=== PATIENT | male | born 1995 | race Caucasian/White ===

== ENCOUNTER 2021-01-29 12:20 | Emergency (ER) | payer MEDICAID ==
[~2021-01-29] VITALS: Ht 182.9 cm; Wt 109.1 kg
[2021-01-29 12:49] VITALS: BP 127/90
[2021-01-29] MEDS ORDERED: ketorolac tromethamine 15mg/ml inj. IM ONE (13:35)
[2021-01-29] MEDS ORDERED: IBUP-1984 PO (13:56)
== END 2021-01-29 15:00 | disposition home or self-care (01) ==
LOC: ER 12:22
DX: M25.571 Pain in right ankle and joints of right foot (principal); W22.8XXA Striking against or struck by other objects, initial encounter; Y93.89 Activity, other specified; Y92.89 Other specified places as the place of occurrence of the external cause; Y99.8 Other external cause status
CPT/HCPCS: 73610; 96372; 99283; J1885

== ENCOUNTER 2021-08-28 14:11 | Emergency (ER) | payer MEDICAID ==
[~2021-08-28] VITALS: Ht 182.9 cm; Wt 150.0 kg
[2021-08-28 15:25] LABS: BASOPHILS # (AUTO) 0.1 X10'3 (0-0.2); BASOPHILS % (AUTO) 0.4 % (0-1); EOSINOPHILS % (AUTO) 0.3 % (0-6); HEMATOCRIT 41.6 % (42.0-52.0); HEMOGLOBIN 13.4 g/dl (14.0-17.9); LYMPHOCYTES # (AUTO) 1.7 X10'3 (1.1-4.8); MEAN CORPUSCULAR HEMOGLOBIN 25.3 PG (27.0-31.0); MEAN CORPUSCULAR HGB CONC 32.2 g/dL (33.0-36.5); MEAN CORPUSCULAR VOLUME 78.6 FL (78-98); MEAN PLATELET VOLUME 7.9 FL (7.4-10.4); MONOCYTES # (AUTO) 0.8 X10'3 (0-0.9); MONOCYTES % (AUTO) 5.5 % (2-12); NEUTROPHILS # (AUTO) 11.6 X10'3 (1.8-7.7); NEUTROPHILS % (AUTO) 81.8 % (42-75); PLATELET COUNT 332 X10'3 (140-440); RED BLOOD COUNT 5.29 X10'6 (4.70-6.10); WHITE BLOOD COUNT 14.2 X10'3 (4.5-11.0)
[2021-08-28 15:38] LABS: ALANINE AMINOTRANSFERASE 35 U/L (12-78); ALBUMIN 3.5 G/DL (3.4-5.0); ALBUMIN/GLOBULIN RATIO 0.9 (1.1-1.5); ALKALINE PHOSPHATASE 94 IU/L (46-116); ANION GAP 10 (8-16); ASPARTATE AMINO TRANSFERASE 20 U/L (10-37); BILIRUBIN,TOTAL 0.3 MG/DL (0.1-1.0); BLOOD UREA NITROGEN 7 MG/DL (7-18); BUN/CREATININE RATIO 8.6 (5.4-32.0); CALCIUM 9.2 MG/DL (8.5-10.1); CHLORIDE 107 MMOL/L (99-107); CREATININE 0.81 MG/DL (0.60-1.10); GLUCOSE 109 MG/DL (70-104); MAGNESIUM 1.9 MG/DL (1.5-2.4); POTASSIUM 3.8 MMOL/L (3.5-5.1); SODIUM 143 MMOL/L (135-145); TOTAL CARBON DIOXIDE 26.5 MMOL/L (24-32); TOTAL PROTEIN 7.5 G/DL (6.4-8.2); eGFR > 90 ML/MIN
[2021-08-28 16:01] LABS: CLARITY,URINE CLEAR (Clear); COLOR,URINE YELLOW (Yellow); GLUCOSE, URINE NEGATIVE (Neg); KETONES,URINE NEGATIVE (Neg); LEUKOCYTE ESTERASE ,URINE TRACE (Neg); NITRITES, URINE NEGATIVE (Neg); OCCULT BLOOD,URINE NEGATIVE (Neg); PROTEIN,URINE NEGATIVE (Neg); UROBILINOGEN,URINE 0.2 E.U/dL (0.2-1.0)
[2021-08-28 16:03] LABS: UA COLLECTION TYPE NON-SPECIFIED
[2021-08-28 16:11] LABS: SQUAMOUS EPITHELIAL CELL,UR FEW /LPF (FEW)
[2021-08-28 16:12] LABS: BACTERIA,URINE FEW /HPF (Neg); RBC,URINE 0-2 /HPF (0-2); WBC,URINE 0-4 /HPF (0-4)
[2021-08-28 17:49] VITALS: BP 131/80
== END 2021-08-28 17:50 | disposition home or self-care (01) ==
LOC: ER 14:11
DX: R55 Syncope and collapse (principal); R42 Dizziness and giddiness; R53.1 Weakness
CPT/HCPCS: 36415; 80053; 81001; 83735; 85025; 87088; 93005; 99284

== ENCOUNTER 2022-07-08 22:21 | Emergency (ER) | payer MEDICAID ==
[~2022-07-08] VITALS: Ht 182.9 cm; Wt 148.2 kg
[2022-07-08 22:26] VITALS: BP 134/82
[2022-07-08] MEDS ORDERED: rabies vaccine (PCEC)/PF 2.5 unit kit IMVAC ONE (22:30)
[2022-07-08] MEDS ORDERED: rabies immune globulin/PF 150 unit/ml inj IMVAC ONE ×2 (22:30→23:40)
[2022-07-08] MEDS ORDERED: TETanus/Pertussis (Acell)/Diphther VAC/PF (Tdap-Adult) 0.5ml syringe IMVAC ONE (22:30)
[2022-07-09] MEDS ORDERED: AMOX500C2 PO (00:16)
== END 2022-07-09 00:24 | disposition home or self-care (01) ==
LOC: ER 22:22
DX: S70.312A Abrasion, left thigh, initial encounter (principal); T63.91XA Toxic effect of contact with unspecified venomous animal, accidental (unintentional), initial encounter; Y92.89 Other specified places as the place of occurrence of the external cause; Y93.89 Activity, other specified; Y99.8 Other external cause status
CPT/HCPCS: 90376; 90471; 90675; 90715; 96372; 99284

== ENCOUNTER 2022-07-12 08:31 | Emergency (ER) | payer MEDICAID ==
[~2022-07-12] VITALS: Ht 182.9 cm; Wt 136.0 kg
[~2022-07-12 08:31] MED LIST: AMOX500C2 PO
[2022-07-12 08:33] VITALS: BP 142/95
[2022-07-12] MEDS ORDERED: rabies vaccine (PCEC)/PF 2.5 unit kit IMVAC ONE (11:05)
[2022-07-16] MEDS ORDERED: rabies vaccine (PCEC)/PF 2.5 unit kit IMVAC ONE (09:10)
== END 2022-07-12 11:30 | disposition home or self-care (01) ==
LOC: ER 08:31
DX: S81.851A Open bite, right lower leg, initial encounter (principal); Z23 Encounter for immunization; W64.XXXA Exposure to other animate mechanical forces, initial encounter; Y93.89 Activity, other specified; Y92.89 Other specified places as the place of occurrence of the external cause; Y99.8 Other external cause status
CPT/HCPCS: 90471; 90675; 99283

== ENCOUNTER 2022-07-16 08:37 | Emergency (ER) | payer MEDICAID ==
[~2022-07-16] VITALS: Ht 182.9 cm; Wt 136.0 kg
[2022-07-16 08:45] VITALS: BP 138/85
[2022-07-16] MEDS ORDERED: rabies vaccine (PCEC)/PF 2.5 unit kit IMVAC ONE (10:10)
== END 2022-07-16 10:21 | disposition home or self-care (01) ==
LOC: ER 08:37
DX: S81.851D Open bite, right lower leg, subsequent encounter (principal); Z48.00 Encounter for change or removal of nonsurgical wound dressing; Z20.3 Contact with and (suspected) exposure to rabies; W54.0XXD Bitten by dog, subsequent encounter
CPT/HCPCS: 90471; 90675; 99281

== ENCOUNTER 2022-07-23 06:53 | Emergency (ER) | payer MEDICAID ==
[~2022-07-23] VITALS: Ht 182.9 cm; Wt 131.8 kg
[2022-07-23 07:37] VITALS: BP 104/74
[2022-07-23] MEDS ORDERED: rabies vaccine (PCEC)/PF 2.5 unit kit IMVAC ONE (09:05)
== END 2022-07-23 09:20 | disposition home or self-care (01) ==
LOC: ER 06:53
DX: Z20.3 Contact with and (suspected) exposure to rabies (principal)
CPT/HCPCS: 90471; 90675; 99281

== ENCOUNTER 2023-03-22 08:41 | Inpatient (IN) | payer MEDICAID ==
[~2023-03-22] VITALS: Ht 182.9 cm; Wt 143.8 kg
[2023-03-22] MEDS ORDERED: iohexol 300mg/ml 100ml inj. ONE (10:10)
[2023-03-22 10:36] LABS: BASOPHILS # (AUTO) 0.1 X10'3 (0-0.2); BASOPHILS % (AUTO) 0.5 % (0-1); EOSINOPHILS # (AUTO) 0.1 X10'3 (0-0.9); EOSINOPHILS % (AUTO) 1.1 % (0-6); HEMATOCRIT 42.5 % (42.0-52.0); HEMOGLOBIN 13.8 g/dl (14.0-17.9); LYMPHOCYTES % (AUTO) 22.7 % (21-51); MEAN CORPUSCULAR HEMOGLOBIN 25.4 PG (27.0-31.0); MEAN CORPUSCULAR HGB CONC 32.5 g/dL (33.0-36.5); MEAN CORPUSCULAR VOLUME 78.1 FL (78-98); MEAN PLATELET VOLUME 8.2 FL (7.4-10.4); MONOCYTES # (AUTO) 0.8 X10'3 (0-0.9); MONOCYTES % (AUTO) 5.9 % (2-12); NEUTROPHILS # (AUTO) 9.1 X10'3 (1.8-7.7); NEUTROPHILS % (AUTO) 69.8 % (42-75); PLATELET COUNT 329 X10'3 (140-440); RED BLOOD COUNT 5.44 X10'6 (4.70-6.10); RED CELL DISTRIBUTION WIDTH 15.6 % (11.5-14.5)
[2023-03-22 10:50] LABS: ALANINE AMINOTRANSFERASE 38 U/L (12-78); ALBUMIN 3.7 G/DL (3.4-5.0); ALBUMIN/GLOBULIN RATIO 0.9 (1.1-1.5); ALKALINE PHOSPHATASE 101 IU/L (46-116); ANION GAP 5 (8-16); ASPARTATE AMINO TRANSFERASE 22 U/L (10-37); BILIRUBIN,TOTAL 0.6 MG/DL (0.1-1.0); BLOOD UREA NITROGEN 12 MG/DL (7-18); CALCIUM 9.3 MG/DL (8.5-10.1); CHLORIDE 101 MMOL/L (99-107); CREATININE 0.86 MG/DL (0.60-1.10); GLUCOSE 101 MG/DL (70-104); POTASSIUM 3.7 MMOL/L (3.5-5.1); SODIUM 134 MMOL/L (135-145); TOTAL CARBON DIOXIDE 28.3 MMOL/L (24-32); eCRCL 143 ML/MIN; eGFR > 90 ML/MIN
[2023-03-22 11:55] LABS: BILIRUBIN,URINE NEGATIVE (Neg); CLARITY,URINE CLEAR (Clear); COLOR,URINE YELLOW (Yellow); GLUCOSE, URINE NEGATIVE (Neg); KETONES,URINE NEGATIVE (Neg); LEUKOCYTE ESTERASE ,URINE NEGATIVE (Neg); NITRITES, URINE NEGATIVE (Neg); OCCULT BLOOD,URINE TRACE-INTACT (Neg); PH,URINE 5.5 (4.8-8.0); PROTEIN,URINE NEGATIVE (Neg); UROBILINOGEN,URINE 0.2 E.U/dL (0.2-1.0)
[2023-03-22 11:59] LABS: UA COLLECTION TYPE CLN CATCH MIDSTREAM
[2023-03-22 12:00] LABS: BACTERIA,URINE NONE SEEN /HPF (Neg); MUCUS STRANDS FEW /LPF (Neg); RBC,URINE 0-2 /HPF (0-2); SQUAMOUS EPITHELIAL CELL,UR NONE SEEN /LPF (FEW); WBC,URINE NONE SEEN /HPF (0-4)
[2023-03-22] MEDS ORDERED: normal saline 1000ML IV soln IVB ONE (13:15)
[2023-03-22] MEDS ORDERED: acetaminophen 325mg tablet PO PRN (13:50)
[2023-03-22] MEDS ORDERED: magnesium 4gm in 100ml NS 100 ML IV PRN (13:50)
[2023-03-22] MEDS: normal saline 1000ml 1,000 ML IV SCH (13:50)
[2023-03-22] MEDS ORDERED: ondansetron/PF 4mg/2ml inj IV PRN (13:50)
[2023-03-22] MEDS ORDERED: potassium Cl 20 mEq SR tablet PO PRN ×2 (13:50)
[2023-03-22] MEDS ORDERED: magnesium Cl slow-release 64mg tablet PO PRN (13:50)
[2023-03-22] MEDS ORDERED: potassium Cl 40MEQ/1/2NS 520ml 520 ML IV PRN (13:50)
[2023-03-22] MEDS ORDERED: ringers solution, lacted 1,000 ML IV ONE (14:00)
[2023-03-22] MEDS ORDERED: morphine 2 MG/ML inj. syringe IV PRN ×2 (16:00)
[2023-03-22] MEDS: piperacillin/tazo 4.5gm/100ml 100 ML IV SCH (16:06)
--- NOTE | 2023-03-22 18:37 | NUR ---
RECIEVED FROM ER IN A WHEELCHAIR W/ IVF ON, REPORT GIVEN BY LEONEL.
[2023-03-22 18:50] VITALS: BP 131/64; RESP 14; TEMP 99.4; O2SAT 100
[2023-03-22 22:00] VITALS: BP 136/85; PULSE 78; RESP 16; TEMP 98.8; O2SAT 100
[2023-03-23] VITALS (18 sets, daily range): BP systolic 100–150; BP diastolic 56–96; PULSE 67–102; RESP 14–18; TEMP 97.8–99; O2SAT 93–100
[2023-03-23 05:25] LABS: BASOPHILS # (AUTO) 0.1 X10'3 (0-0.2); BASOPHILS % (AUTO) 0.6 % (0-1); EOSINOPHILS # (AUTO) 0.2 X10'3 (0-0.9); EOSINOPHILS % (AUTO) 1.8 % (0-6); HEMATOCRIT 41.2 % (42.0-52.0); HEMOGLOBIN 13.5 g/dl (14.0-17.9); LYMPHOCYTES # (AUTO) 3.5 X10'3 (1.1-4.8); LYMPHOCYTES % (AUTO) 28.5 % (21-51); MEAN CORPUSCULAR HEMOGLOBIN 25.6 PG (27.0-31.0); MEAN CORPUSCULAR HGB CONC 32.7 g/dL (33.0-36.5); MEAN CORPUSCULAR VOLUME 78.1 FL (78-98); MEAN PLATELET VOLUME 8.7 FL (7.4-10.4); MONOCYTES # (AUTO) 0.7 X10'3 (0-0.9); MONOCYTES % (AUTO) 5.7 % (2-12); NEUTROPHILS # (AUTO) 7.8 X10'3 (1.8-7.7); NEUTROPHILS % (AUTO) 63.4 % (42-75); PLATELET COUNT 303 X10'3 (140-440); RED BLOOD COUNT 5.27 X10'6 (4.70-6.10); RED CELL DISTRIBUTION WIDTH 15.1 % (11.5-14.5); WHITE BLOOD COUNT 12.3 X10'3 (4.5-11.0)
[2023-03-23 05:33] LABS: ALANINE AMINOTRANSFERASE 37 U/L (12-78); ALBUMIN 3.4 G/DL (3.4-5.0); ALKALINE PHOSPHATASE 95 IU/L (46-116); ANION GAP 8 (8-16); ASPARTATE AMINO TRANSFERASE 17 U/L (10-37); BILIRUBIN,TOTAL 0.6 MG/DL (0.1-1.0); BLOOD UREA NITROGEN 9 MG/DL (7-18); CALCIUM 9.1 MG/DL (8.5-10.1); CHLORIDE 103 MMOL/L (99-107); CREATININE 0.82 MG/DL (0.60-1.10); POTASSIUM 3.4 MMOL/L (3.5-5.1); SODIUM 137 MMOL/L (135-145); TOTAL CARBON DIOXIDE 25.9 MMOL/L (24-32); eCRCL 150 ML/MIN; eGFR > 90 ML/MIN
[2023-03-23 05:34] LABS: ALBUMIN/GLOBULIN RATIO 0.8 (1.1-1.5); GLUCOSE 74 MG/DL (70-104); TOTAL PROTEIN 7.6 G/DL (6.4-8.2)
[2023-03-23] MEDS: piperacillin/tazo 4.5gm/100ml 100 ML IV SCH ×3 (07:31→16:11)
[2023-03-23 09:34] LABS: MAGNESIUM 2.2 MG/DL (1.5-2.4)
[2023-03-23] MEDS ORDERED: BUPIVAcaine/PF 2.5 mg/ml (0.25%) 30ml vial ONE (09:44)
[2023-03-23] MEDS ORDERED: midazolam 1 mg/ML 2ml injection ONE (09:45)
[2023-03-23] MEDS: normal saline 1000ml 1,000 ML IV SCH ×2 (09:50→15:40)
[2023-03-23] MEDS ORDERED: proCHLORperazine 10 MG/2 ml inj IV PRN (10:00)
[2023-03-23] MEDS ORDERED: ketorolac trometh. 30mg/ml inj. IV ONE (10:00)
[2023-03-23] MEDS ORDERED: meperidine/PF 25mg/ml syringe IV PRN ×3 (10:00)
[2023-03-23] MEDS ORDERED: morphine 2 MG/ML inj. syringe IV PRN (10:00)
[2023-03-23] MEDS ORDERED: hydrALAZINE 20mg/ml inj. IV PRN (10:00)
[2023-03-23] MEDS ORDERED: acetaminophen 1,000mg/100ml IV 100 ML IV PRN (10:00)
[2023-03-23] MEDS ORDERED: ringers solution, lacted 1,000 ML IV SCH (10:00)
[2023-03-23] MEDS ORDERED: labetalol 20mg/4ml (5mg/ml) syringe IV PRN (10:00)
[2023-03-23] MEDS ORDERED: morphine 4 MG/ML inj SYRINge IV PRN (10:00)
[2023-03-23] MEDS ORDERED: ondansetron/PF 4mg/2ml inj IV PRN ×2 (10:00→12:20)
[2023-03-23] MEDS ORDERED: rocuronium 10mg/ml inj IV ONE ×2 (10:44→11:02)
[2023-03-23] MEDS ORDERED: sevoflurane 250ml liquid IH ONE (10:44)
--- NOTE | 2023-03-23 10:49 | NUR ---
Called to recovery twice to give report. No answer.
[2023-03-23] MEDS ORDERED: fentaNYL /PF 50mcg/ml 5ml ampule ONE (10:51)
[2023-03-23] MEDS ORDERED: propofol inj 20 ML IV ONE ×2 (11:02)
[2023-03-23] MEDS ORDERED: ondansetron/PF 4mg/2ml inj ONE (11:02)
[2023-03-23] MEDS ORDERED: LIDOcaine 2% (20mg/ml) 5ml vial ONE (11:02)
[2023-03-23] MEDS ORDERED: dexamethasone sod phosphate 4mg/ml inj. ONE (11:03)
[2023-03-23 11:14] LABS: PROTHROMBIN TIME 10.7 SECONDS (9.0-12.0)
[2023-03-23] MEDS ORDERED: BUPIVAcaine/PF 2.5 mg/ml (0.25%) 30ml vial IJ ONE (11:47)
[2023-03-23] MEDS ORDERED: neostigmine methylsulfate 1 MG/ML 10ml vial ONE (12:12)
[2023-03-23] MEDS ORDERED: glycopyrrolate 0.2mg/ml inj ONE (12:12)
[2023-03-23] MEDS ORDERED: sugammadex 200mg/2ml injection IV ONE (12:18)
[2023-03-23] MEDS ORDERED: naloxone 0.4 mg/ml inj IV PRN (12:20)
--- NOTE | 2023-03-23 12:20 | NUR ---
Received from OR via BED, accompanied by Anesthesiologist PHYLLIS and report given by Anesthesiolgist. PT DROWSY, OXYGENATING WELL ON 10 LPM O2 VIA MASK, NO RESP DISTRESS NOTED. DENIES NAUSEA, C/O 2/10 INCISIONAL PAIN. 2 LARGE BANDAIDS OVER ABD TROCAR SITES. SCANT AMOUNT OF SANGINOUS OUTPUT ON UMBILICUS DSG. SCDS ON. VSS.
[2023-03-23] MEDS: HYDROcodone/acetaminophen 10/325mg tab PO PRN ×2 (13:25→19:15)
--- NOTE | 2023-03-23 13:35 | NUR ---
Report called to receiving nurse. Transferred via BED Belongings IN PT ROOM. VSS, TOLERATING PO FLUIDS WELL. PT IS DROWSY, PROTECTING AIRWAY. STATES HE IS PAINFUL 7/10, MEDICATED WITH IV TYLENOL, TORADOL AND GIVEN FIRST DOSE OF NORCO 10/325. PAIN LEVEL SLOWLY TRENDING DOWN. TRANSFERRED TO ORTHO FLOOR IN STABLE CONDITION. Special Issues communicated to receiving nurse.
--- NOTE | 2023-03-23 14:18 | NUR ---
PAGER ID: [phone] MESSAGE: Ayden Gomez Re: [id number] and [id number]. Both patients no cardiac history and have been in sinus rhythm. Do we need to continue them on telemetry monitoring? Thanks [id number]
--- NOTE | 2023-03-23 17:42 | NUR ---
Student documentation: I have reviewed all interventions, assessments performed and documented by Curtis LUNSFORD. Student Medication Administration: For this medication-pass time frame, all medication were reviewed, dispensed, administered and documented per hospital policy by Curtis LUNSFORD.
--- NOTE | 2023-03-23 18:29 | NUR ---
Problems reprioritized. Patient report given, questions answered & plan of care reviewed with Dylan LUNSFORD.
[2023-03-24] MEDS: piperacillin/tazo 4.5gm/100ml 100 ML IV SCH ×3 (00:06→15:21)
[2023-03-24 02:00] VITALS: BP 108/70; PULSE 86; RESP 16; TEMP 98.1; O2SAT 97
[2023-03-24] MEDS: normal saline 1000ml 1,000 ML IV SCH ×2 (03:57→19:58)
[2023-03-24 06:00] VITALS: BP 107/57; PULSE 58; RESP 20; TEMP 98.6; O2SAT 97
[2023-03-24 06:04] LABS: BASOPHILS # (AUTO) 0.1 X10'3 (0-0.2); BASOPHILS % (AUTO) 0.5 % (0-1); EOSINOPHILS % (AUTO) 0 % (0-6); HEMATOCRIT 41.1 % (42.0-52.0); HEMOGLOBIN 13.4 g/dl (14.0-17.9); LYMPHOCYTES # (AUTO) 1.4 X10'3 (1.1-4.8); LYMPHOCYTES % (AUTO) 7.9 % (21-51); MEAN CORPUSCULAR HEMOGLOBIN 25.3 PG (27.0-31.0); MEAN CORPUSCULAR HGB CONC 32.5 g/dL (33.0-36.5); MEAN CORPUSCULAR VOLUME 77.8 FL (78-98); MEAN PLATELET VOLUME 8.6 FL (7.4-10.4); MONOCYTES # (AUTO) 0.8 X10'3 (0-0.9); MONOCYTES % (AUTO) 4.4 % (2-12); NEUTROPHILS # (AUTO) 15.7 X10'3 (1.8-7.7); NEUTROPHILS % (AUTO) 87.2 % (42-75); PLATELET COUNT 334 X10'3 (140-440); RED BLOOD COUNT 5.28 X10'6 (4.70-6.10); RED CELL DISTRIBUTION WIDTH 14.8 % (11.5-14.5); WHITE BLOOD COUNT 18.1 X10'3 (4.5-11.0)
--- NOTE | 2023-03-24 06:15 | NUR ---
Patient in room ORTHO 4022. I have received report from Dylan BILL and had the opportunity to ask questions and assume patient care.
[2023-03-24 06:20] LABS: ALANINE AMINOTRANSFERASE 37 U/L (12-78); ALBUMIN 3.5 G/DL (3.4-5.0); ALBUMIN/GLOBULIN RATIO 0.8 (1.1-1.5); ALKALINE PHOSPHATASE 90 IU/L (46-116); ANION GAP 8 (8-16); ASPARTATE AMINO TRANSFERASE 18 U/L (10-37); BILIRUBIN,TOTAL 0.5 MG/DL (0.1-1.0); BLOOD UREA NITROGEN 6 MG/DL (7-18); CALCIUM 9.4 MG/DL (8.5-10.1); CHLORIDE 102 MMOL/L (99-107); CREATININE 0.86 MG/DL (0.60-1.10); GLUCOSE 115 MG/DL (70-104); POTASSIUM 3.8 MMOL/L (3.5-5.1); SODIUM 136 MMOL/L (135-145); TOTAL CARBON DIOXIDE 26.3 MMOL/L (24-32); TOTAL PROTEIN 7.9 G/DL (6.4-8.2); eCRCL 143 ML/MIN; eGFR > 90 ML/MIN
[2023-03-24 08:00] VITALS: RESP 20; O2SAT 97
[2023-03-24] MEDS ORDERED: magnesium hydroxide 30ml (MOM) UD suspension PO PRN (13:15)
[2023-03-24] MEDS ORDERED: UNABLE TO OBTAIN (16:01)
[2023-03-24] MEDS ORDERED: metoclopramide 5 mg/ml inj IV PRN (17:30)
[2023-03-24 18:00] VITALS: BP 131/72; PULSE 82; RESP 18; TEMP 97.8; O2SAT 97
--- NOTE | 2023-03-24 18:00 | NUR ---
I have reviewed and agree with interventions, assessments, and documentation by Angelique Khalil LVN.
--- NOTE | 2023-03-24 18:31 | NUR ---
Problems reprioritized. Patient report given, questions answered & plan of care reviewed with Beth LUNSFORD.
[2023-03-24 22:00] VITALS: BP 112/57; PULSE 72; RESP 16; TEMP 97.9; O2SAT 100
[2023-03-25] MEDS: piperacillin/tazo 4.5gm/100ml 100 ML IV SCH ×2 (00:47→08:15)
[2023-03-25 06:00] VITALS: BP 111/41; PULSE 74; RESP 18; TEMP 97.6; O2SAT 99
--- NOTE | 2023-03-25 06:05 | NUR ---
Patient in room ORTHO 4022. I have received report from Beth RN and had the opportunity to ask questions and assume patient care.
[2023-03-25 06:49] LABS: BASOPHILS # (AUTO) 0.1 X10'3 (0-0.2); BASOPHILS % (AUTO) 0.4 % (0-1); EOSINOPHILS # (AUTO) 0.1 X10'3 (0-0.9); EOSINOPHILS % (AUTO) 0.5 % (0-6); HEMATOCRIT 39.9 % (42.0-52.0); HEMOGLOBIN 12.8 g/dl (14.0-17.9); LYMPHOCYTES # (AUTO) 4.2 X10'3 (1.1-4.8); LYMPHOCYTES % (AUTO) 26.5 % (21-51); MEAN CORPUSCULAR HEMOGLOBIN 25.3 PG (27.0-31.0); MEAN CORPUSCULAR HGB CONC 32.1 g/dL (33.0-36.5); MEAN CORPUSCULAR VOLUME 78.8 FL (78-98); MEAN PLATELET VOLUME 8.4 FL (7.4-10.4); MONOCYTES # (AUTO) 1.2 X10'3 (0-0.9); MONOCYTES % (AUTO) 7.8 % (2-12); NEUTROPHILS # (AUTO) 10.3 X10'3 (1.8-7.7); NEUTROPHILS % (AUTO) 64.8 % (42-75); PLATELET COUNT 326 X10'3 (140-440); RED BLOOD COUNT 5.07 X10'6 (4.70-6.10); RED CELL DISTRIBUTION WIDTH 15.1 % (11.5-14.5); WHITE BLOOD COUNT 15.9 X10'3 (4.5-11.0)
[2023-03-25 07:15] LABS: ALANINE AMINOTRANSFERASE 33 U/L (12-78); ALBUMIN 3.3 G/DL (3.4-5.0); ALBUMIN/GLOBULIN RATIO 0.8 (1.1-1.5); ALKALINE PHOSPHATASE 80 IU/L (46-116); ANION GAP 10 (8-16); ASPARTATE AMINO TRANSFERASE 22 U/L (10-37); BILIRUBIN,TOTAL 0.4 MG/DL (0.1-1.0); BLOOD UREA NITROGEN 12 MG/DL (7-18); BUN/CREATININE RATIO 12.2 (10.0-20.0); CALCIUM 9.1 MG/DL (8.5-10.1); CHLORIDE 104 MMOL/L (99-107); CREATININE 0.98 MG/DL (0.60-1.10); GLUCOSE 88 MG/DL (70-104); POTASSIUM 3.6 MMOL/L (3.5-5.1); SODIUM 140 MMOL/L (135-145); TOTAL CARBON DIOXIDE 25.9 MMOL/L (24-32); TOTAL PROTEIN 7.4 G/DL (6.4-8.2); eCRCL 125 ML/MIN; eGFR > 90 ML/MIN
[2023-03-25 08:00] VITALS: RESP 18; O2SAT 99
[2023-03-25] MEDS ORDERED: ACET-1008 PO (08:14)
[2023-03-25] MEDS ORDERED: DOCU100C40 PO (08:15)
[2023-03-25 10:00] VITALS: BP 131/78; PULSE 102; RESP 16; TEMP 97.7; O2SAT 98
--- NOTE | 2023-03-25 12:00 | NUR ---
I have reviewed and agree with interventions, assessments, and documentation by Angelique Khalil LVN.
--- NOTE | 2023-03-25 13:15 | NUR ---
Patient discharge home today with discharge instructions. All questions were answered. IV removed and all belongings were gathered. Patient alert and appropriate upon discharge. CAT transportation picked patient up and transported to home.
== END 2023-03-25 12:49 | disposition home or self-care (01) | DRG 234 ==
LOC: ER 08:41 → UNDOADMIN 13:57 → ED HOLD 13:57 → ORTHO 4S 18:33
PROVIDERS: ADMIT Internal Medicine; ATTEND Internal Medicine
PROC: 0DTJ4ZZ Resection of Appendix, Percutaneous Endoscopic Approach (ICD-10-PCS; principal; 2023-03-23 10:44)
DX: K35.30 Acute appendicitis with localized peritonitis, without perforation or gangrene (principal); Z79.899 Other long term (current) drug therapy
CPT/HCPCS: 36415; 71045; 74176; 80053; 81001; 82948; 83735; 85025; 85610; 86885; 86900; 86901; 87081; 99285; A4215; A4314; A4618; A7000; G0378; J0131; J1100; J1885; J2250; J2270; J2405; J2543; J2704; J2710; J2765; J3010; J3490; J7030; J7120; Q9967

== ENCOUNTER 2023-04-05 16:12 | Emergency (ER) | payer MEDICAID ==
[~2023-04-05] VITALS: Ht 182.9 cm; Wt 152.6 kg
[~2023-04-05 16:12] MED LIST changes: +ACET-1008 PO; -AMOX500C2 PO; +DOCU100C40 PO; +UNABLE TO OBTAIN
[2023-04-05 16:13] VITALS: BP 121/78; PULSE 98; RESP 16; TEMP 97.9; O2SAT 98
[2023-04-05 17:28] LABS: BASOPHILS # (AUTO) 0.2 X10'3 (0-0.2); BASOPHILS % (AUTO) 1.1 % (0-1); EOSINOPHILS # (AUTO) 0.1 X10'3 (0-0.9); EOSINOPHILS % (AUTO) 0.9 % (0-6); HEMATOCRIT 43.3 % (42.0-52.0); HEMOGLOBIN 14.1 g/dl (14.0-17.9); LYMPHOCYTES # (AUTO) 2.9 X10'3 (1.1-4.8); LYMPHOCYTES % (AUTO) 19.9 % (21-51); MEAN CORPUSCULAR HEMOGLOBIN 25.2 PG (27.0-31.0); MEAN CORPUSCULAR HGB CONC 32.5 g/dL (33.0-36.5); MEAN CORPUSCULAR VOLUME 77.7 FL (78-98); MEAN PLATELET VOLUME 8.4 FL (7.4-10.4); MONOCYTES # (AUTO) 0.6 X10'3 (0-0.9); MONOCYTES % (AUTO) 4.4 % (2-12); NEUTROPHILS # (AUTO) 10.7 X10'3 (1.8-7.7); NEUTROPHILS % (AUTO) 73.7 % (42-75); PLATELET COUNT 365 X10'3 (140-440); RED BLOOD COUNT 5.58 X10'6 (4.70-6.10); RED CELL DISTRIBUTION WIDTH 14.9 % (11.5-14.5); WHITE BLOOD COUNT 14.5 X10'3 (4.5-11.0)
[2023-04-05 17:30] LABS: ALANINE AMINOTRANSFERASE 71 U/L (12-78); ALBUMIN 3.8 G/DL (3.4-5.0); ALBUMIN/GLOBULIN RATIO 0.9 (1.1-1.5); ALKALINE PHOSPHATASE 109 IU/L (46-116); ANION GAP 11 (8-16); ASPARTATE AMINO TRANSFERASE 32 U/L (10-37); BILIRUBIN,TOTAL 0.5 MG/DL (0.1-1.0); BLOOD UREA NITROGEN 7 MG/DL (7-18); CALCIUM 9.7 MG/DL (8.5-10.1); CHLORIDE 102 MMOL/L (99-107); CREATININE 0.88 MG/DL (0.60-1.10); GLUCOSE 126 MG/DL (70-104); POTASSIUM 3.3 MMOL/L (3.5-5.1); SODIUM 138 MMOL/L (135-145); TOTAL PROTEIN 8.2 G/DL (6.4-8.2); eCRCL 140 ML/MIN; eGFR > 90 ML/MIN
[2023-04-05] MEDS ORDERED: potassium Cl 20 mEq SR tablet PO STA (17:45)
[2023-04-05 18:01] LABS: OCCULT BLOOD STOOL NEGATIVE (Neg)
[2023-04-05 19:34] LABS: BILIRUBIN,URINE NEGATIVE (Neg); CLARITY,URINE CLEAR (Clear); COLOR,URINE YELLOW (Yellow); GLUCOSE, URINE NEGATIVE (Neg); KETONES,URINE NEGATIVE (Neg); LEUKOCYTE ESTERASE ,URINE NEGATIVE (Neg); NITRITES, URINE NEGATIVE (Neg); OCCULT BLOOD,URINE NEGATIVE (Neg); PROTEIN,URINE NEGATIVE (Neg); UROBILINOGEN,URINE 0.2 E.U/dL (0.2-1.0)
[2023-04-05 19:39] LABS: UA COLLECTION TYPE CLN CATCH MIDSTREAM
== END 2023-04-05 21:00 | disposition home or self-care (01) ==
LOC: ER 16:12
DX: R10.31 Right lower quadrant pain (principal)
CPT/HCPCS: 36415; 80053; 81003; 82272; 85025; 99283

== ENCOUNTER 2023-04-09 15:15 | Emergency (ER) | payer MEDICAID ==
[~2023-04-09] VITALS: Ht 182.9 cm; Wt 153.2 kg
[2023-04-09 16:07] VITALS: BP 174/91; PULSE 82; RESP 16; TEMP 98.3; O2SAT 98
[2023-04-09] MEDS ORDERED: iohexol 300mg/ml 100ml inj. ONE (17:54)
[2023-04-09 18:14] LABS: ALANINE AMINOTRANSFERASE 53 U/L (12-78); ALBUMIN 3.6 G/DL (3.4-5.0); ALBUMIN/GLOBULIN RATIO 0.8 (1.1-1.5); ALKALINE PHOSPHATASE 115 IU/L (46-116); ANION GAP 7 (8-16); ASPARTATE AMINO TRANSFERASE 22 U/L (10-37); BILIRUBIN,TOTAL 0.3 MG/DL (0.1-1.0); BLOOD UREA NITROGEN 9 MG/DL (7-18); BUN/CREATININE RATIO 10.3 (10.0-20.0); CALCIUM 9.4 MG/DL (8.5-10.1); CHLORIDE 105 MMOL/L (99-107); CREATININE 0.87 MG/DL (0.60-1.10); GLUCOSE 92 MG/DL (70-104); POTASSIUM 3.7 MMOL/L (3.5-5.1); SODIUM 140 MMOL/L (135-145); TOTAL CARBON DIOXIDE 28.4 MMOL/L (24-32); eCRCL 141 ML/MIN; eGFR > 90 ML/MIN
== END 2023-04-10 01:28 | disposition left against medical advice (07) ==
LOC: ER 15:16
DX: Z00.8 Encounter for other general examination (principal); Z53.21 Procedure and treatment not carried out due to patient leaving prior to being seen by health care provider
CPT/HCPCS: 36415; 80053; 83605; 87040; 99281; J3490; Q9967

== ENCOUNTER 2023-04-30 07:33 | Emergency (ER) | payer MEDICAID ==
[~2023-04-30] VITALS: Ht 182.9 cm; Wt 156.3 kg
[2023-04-30 07:35] VITALS: TEMP 97.6
[2023-04-30 08:47] LABS: BASOPHILS # (AUTO) 0.1 X10'3 (0-0.2); BASOPHILS % (AUTO) 0.4 % (0-1); EOSINOPHILS # (AUTO) 0.2 X10'3 (0-0.9); EOSINOPHILS % (AUTO) 1.7 % (0-6); HEMATOCRIT 40.6 % (42.0-52.0); LYMPHOCYTES # (AUTO) 2.8 X10'3 (1.1-4.8); LYMPHOCYTES % (AUTO) 20.9 % (21-51); MEAN CORPUSCULAR HEMOGLOBIN 25.4 PG (27.0-31.0); MEAN CORPUSCULAR HGB CONC 32.1 g/dL (33.0-36.5); MEAN PLATELET VOLUME 8.1 FL (7.4-10.4); MONOCYTES # (AUTO) 0.7 X10'3 (0-0.9); MONOCYTES % (AUTO) 5.1 % (2-12); NEUTROPHILS # (AUTO) 9.5 X10'3 (1.8-7.7); NEUTROPHILS % (AUTO) 71.9 % (42-75); PLATELET COUNT 321 X10'3 (140-440); RED BLOOD COUNT 5.14 X10'6 (4.70-6.10); WHITE BLOOD COUNT 13.3 X10'3 (4.5-11.0)
[2023-04-30 09:17] LABS: ALANINE AMINOTRANSFERASE 35 U/L (12-78); ALBUMIN 3.3 G/DL (3.4-5.0); ALBUMIN/GLOBULIN RATIO 0.8 (1.1-1.5); ALKALINE PHOSPHATASE 109 IU/L (46-116); ANION GAP 4 (8-16); ASPARTATE AMINO TRANSFERASE 15 U/L (10-37); BILIRUBIN,TOTAL 0.3 MG/DL (0.1-1.0); BLOOD UREA NITROGEN 10 MG/DL (7-18); BUN/CREATININE RATIO 11.9 (10.0-20.0); CALCIUM 8.9 MG/DL (8.5-10.1); CHLORIDE 105 MMOL/L (99-107); CREATININE 0.84 MG/DL (0.60-1.10); GLUCOSE 118 MG/DL (70-104); LIPASE 23 U/L (16-77); POTASSIUM 4.2 MMOL/L (3.5-5.1); SODIUM 137 MMOL/L (135-145); TOTAL CARBON DIOXIDE 28.5 MMOL/L (24-32); TOTAL PROTEIN 7.2 G/DL (6.4-8.2); eCRCL 146 ML/MIN; eGFR > 90 ML/MIN
[2023-04-30] MEDS ORDERED: iohexol 300mg/ml 100ml inj. ONE (09:24)
[2023-04-30 13:16] VITALS: BP 131/89; PULSE 97; RESP 17; O2SAT 97
== END 2023-04-30 13:18 | disposition home or self-care (01) ==
LOC: ER 07:33
DX: K64.8 Other hemorrhoids (principal); Z90.49 Acquired absence of other specified parts of digestive tract
CPT/HCPCS: 36415; 74177; 80053; 83690; 85025; 99285; J3490; Q9967

== ENCOUNTER 2023-12-31 07:24 | Emergency (ER) | payer MEDICAID ==
[~2023-12-31] VITALS: Ht 182.9 cm; Wt 162.1 kg
[2023-12-31 07:42] VITALS: BP 144/91; PULSE 97; RESP 16; TEMP 97; O2SAT 96
[2023-12-31 08:34] LABS: BASOPHILS # (AUTO) 0.1 X10'3 (0-0.2); BASOPHILS % (AUTO) 0.5 % (0-1); EOSINOPHILS # (AUTO) 0.2 X10'3 (0-0.9); HEMATOCRIT 41.1 % (42.0-52.0); HEMOGLOBIN 13.3 g/dl (14.0-17.9); MEAN CORPUSCULAR HGB CONC 32.2 g/dL (33.0-36.5); MEAN CORPUSCULAR VOLUME 77.7 FL (78-98); MEAN PLATELET VOLUME 8.7 FL (7.4-10.4); MONOCYTES # (AUTO) 0.9 X10'3 (0-0.9); MONOCYTES % (AUTO) 5.8 % (2-12); NEUTROPHILS # (AUTO) 11.1 X10'3 (1.8-7.7); NEUTROPHILS % (AUTO) 72.7 % (42-75); PLATELET COUNT 351 X10'3 (140-440); RED CELL DISTRIBUTION WIDTH 15.2 % (11.5-14.5); WHITE BLOOD COUNT 15.3 X10'3 (4.5-11.0)
[2023-12-31 08:37] LABS: APTT 27 SECONDS (22-32); PROTHROMBIN TIME 10.3 SECONDS (9.0-12.0)
[2023-12-31 08:39] LABS: ALANINE AMINOTRANSFERASE 38 U/L (12-78); ALBUMIN 3.4 G/DL (3.4-5.0); ALBUMIN/GLOBULIN RATIO 0.8 (1.1-1.5); ALKALINE PHOSPHATASE 125 IU/L (46-116); ANION GAP 9 (8-16); ASPARTATE AMINO TRANSFERASE 20 U/L (10-37); BILIRUBIN,TOTAL 0.4 MG/DL (0.1-1.0); BLOOD UREA NITROGEN 10 MG/DL (7-18); BUN/CREATININE RATIO 13.2 (10.0-20.0); CALCIUM 8.6 MG/DL (8.5-10.1); CHLORIDE 104 MMOL/L (99-107); CREATININE 0.76 MG/DL (0.60-1.10); POTASSIUM 3.5 MMOL/L (3.5-5.1); SODIUM 138 MMOL/L (135-145); TOTAL CARBON DIOXIDE 24.8 MMOL/L (24-32); TOTAL PROTEIN 7.7 G/DL (6.4-8.2); eCRCL 160 ML/MIN; eGFR > 90 ML/MIN
[2023-12-31 08:46] LABS: GLUCOSE 117 MG/DL (70-104)
[2023-12-31] MEDS ORDERED: HYDR25SU7 RC (09:22)
[2023-12-31] MEDS ORDERED: DOCU-148 PO (09:22)
[2023-12-31] MEDS ORDERED: insulin regular, human 10 units/0.1 ml syringe SQ ONE (10:00)
[2023-12-31] MEDS ORDERED: insulin regular, human 10 units/0.1 ml syringe IV ONE (10:00)
== END 2023-12-31 10:38 | disposition home or self-care (01) ==
LOC: ER 07:24
DX: K64.8 Other hemorrhoids (principal); R19.7 Diarrhea, unspecified; K59.00 Constipation, unspecified; Z79.1 Long term (current) use of non-steroidal anti-inflammatories (NSAID); Z90.49 Acquired absence of other specified parts of digestive tract; Z60.2 Problems related to living alone
CPT/HCPCS: 36415; 80053; 85025; 85610; 85730; 86885; 86900; 86901; 99283

== ENCOUNTER 2024-08-16 05:38 | Emergency (ER) | payer MEDICARE, MEDICAID ==
[~2024-08-16] VITALS: Ht 182.9 cm; Wt 134.1 kg
[~2024-08-16 05:38] MED LIST changes: +DOCU-148 PO; +HYDR25SU7 RC
[2024-08-16 06:29] LABS: ALANINE AMINOTRANSFERASE 38 U/L (12-78); ALBUMIN 3.6 G/DL (3.4-5.0); ALBUMIN/GLOBULIN RATIO 0.9 (1.1-1.5); ALKALINE PHOSPHATASE 97 IU/L (46-116); ANION GAP 9 (8-16); ASPARTATE AMINO TRANSFERASE 21 U/L (10-37); BILIRUBIN,TOTAL 0.2 MG/DL (0.1-1.0); BLOOD UREA NITROGEN 8 MG/DL (7-18); CALCIUM 8.9 MG/DL (8.5-10.1); CHLORIDE 106 MMOL/L (99-107); CREATININE 0.73 MG/DL (0.60-1.10); GLUCOSE 112 MG/DL (70-104); LIPASE 28 U/L (16-77); POTASSIUM 3.5 MMOL/L (3.5-5.1); SODIUM 140 MMOL/L (135-145); TOTAL CARBON DIOXIDE 25.5 MMOL/L (24-32); TOTAL PROTEIN 7.5 G/DL (6.4-8.2); eCRCL 167 ML/MIN; eGFR > 90 ML/MIN
[2024-08-16 06:39] LABS: BASOPHILS % (AUTO) 0.2 % (0-1); EOSINOPHILS # (AUTO) 0.1 X10'3 (0-0.9); EOSINOPHILS % (AUTO) 0.4 % (0-6); HEMATOCRIT 41.9 % (42.0-52.0); HEMOGLOBIN 13.3 g/dl (14.0-17.9); LYMPHOCYTES # (AUTO) 2.7 X10'3 (1.1-4.8); LYMPHOCYTES % (AUTO) 16.9 % (21-51); MEAN CORPUSCULAR HEMOGLOBIN 24.5 PG (27.0-31.0); MEAN CORPUSCULAR HGB CONC 31.7 g/dL (33.0-36.5); MEAN CORPUSCULAR VOLUME 77.4 FL (78-98); MEAN PLATELET VOLUME 8.8 FL (7.4-10.4); MONOCYTES # (AUTO) 0.7 X10'3 (0-0.9); MONOCYTES % (AUTO) 4.6 % (2-12); NEUTROPHILS # (AUTO) 12.5 X10'3 (1.8-7.7); NEUTROPHILS % (AUTO) 77.9 % (42-75); PLATELET COUNT 321 X10'3 (140-440); RED BLOOD COUNT 5.41 X10'6 (4.70-6.10); RED CELL DISTRIBUTION WIDTH 15.7 % (11.5-14.5); WHITE BLOOD COUNT 16.1 X10'3 (4.5-11.0)
[2024-08-16] MEDS: ketorolac trometh 30MG/ML vial 30 MG/ML VIAL IM ONE (07:09)
[2024-08-16] MEDS: famotidine 20mg tablet PO ONE (07:10)
[2024-08-16] MEDS: OLANZapine **IM** 10 mg inj. IM ONE (07:10)
[2024-08-16 07:28] LABS: BILIRUBIN,URINE NEGATIVE (Neg); CLARITY,URINE CLEAR (Clear); COLOR,URINE YELLOW (Yellow); GLUCOSE, URINE NEGATIVE (Neg); KETONES,URINE NEGATIVE (Neg); LEUKOCYTE ESTERASE ,URINE NEGATIVE (Neg); NITRITES, URINE NEGATIVE (Neg); OCCULT BLOOD,URINE NEGATIVE (Neg); PH,URINE 6.5 (4.8-8.0); PROTEIN,URINE NEGATIVE (Neg); UROBILINOGEN,URINE 0.2 E.U/dL (0.2-1.0)
[2024-08-16 07:33] LABS: UA COLLECTION TYPE CLN CATCH MIDSTREAM
[2024-08-16 07:56] VITALS: BP 114/91; PULSE 71; RESP 17; TEMP 98; O2SAT 99
== END 2024-08-16 07:58 | disposition home or self-care (01) ==
LOC: ER 05:38
DX: R10.816 Epigastric abdominal tenderness (principal); Z90.49 Acquired absence of other specified parts of digestive tract
CPT/HCPCS: 36415; 80053; 81003; 83690; 85025; 96372; 99284; J1885; J3490

== ENCOUNTER 2024-11-10 12:46 | Emergency (ER) | payer MEDICARE, MEDICAID ==
[~2024-11-10] VITALS: Ht 182.9 cm; Wt 101.3 kg
[2024-11-10 12:50] VITALS: BP 138/98; PULSE 106; RESP 17; TEMP 97.9; O2SAT 100
--- NOTE | 2024-11-10 14:27 | Physician Documentation ---
History of Present Illness General Chief Complaint: Bite-insect Stated Complaint: BUG BITE Time Seen by MD: 12:53 Primary Medical Doctor: none History of Present Illness Initial Comments [age] year male who presents to the emergency department status post bat bite to the left forearm yesterday. Continues to have mild pain to the area. A single puncture wound to the left mid forearm without erythema. Medication Reconciliation Allergies: Coded Allergies: No Known Allergies (Unverified , 11/10/24) Scheduled Docusate Sodium (Docusate Sodium), 2 CAP PO HS Docusate Sodium (Colace), 1 CAP PO Q12H Hydrocortisone Acetate (Hydrocortisone Acetate), 1 SUPP RC Q12H Scheduled PRN Acetaminophen (Tylenol), 650 MG PO Q6H PRN for pain Miscellaneous Medications Unable to Obtain Medications (Unable to Obtain Medications), (Reported) Past Medical History Past Medical History: *GI/HEPATOBILIARY*, Hemorrhoids Past Surgical History: appendectomy Smoking: Non-Smoker Alcohol Use: None Drug Use: none Lives with: Alone Lives In: Home Occupation: employed Review of Systems All Other Systems at this time: Reviewed and Negative Constitutional: Denies: fever, chills Musc: Reports: pain Physical Exam Physical Exam Vital Signs: RN Vital Signs have been reviewed: Yes, Temperature: 97.9, Source: Temporal, Heart Rate: 106, Respiratory Rate: 17, BP: 138/98, Pulse Oximetry: 100, Weight: 101.300 General Appearance: alert, WD/WN, mild distress Head: normal inspection Face: normal inspection Pupils/EOM/Fundus: PERRLA Respiratory: no respiratory distress Cardiovascular: regular rate, rhythm Back: normal inspection Extremities: normal range of motion Neurologic: oriented x4 Motor / Sensory: no motor deficit, no sensory deficit Psychiatric: normal mood/affect Skin: warm/dry, other (single puncture wound LFA); No: rash, erythema Progress Results/Orders Results/Orders Completed Orders - ARUN CAVANAUGH Rabies Immune Globulin/Pf Inj (Hyperrab (11/10/24 14:27) Rabies Vaccine (Pcec)/Pf (Rabavert Rabie (11/10/24 14:30) Vital Signs 11/10/24 12:50 Temp 97.9 Pulse 106 Resp 17 B/P (MAP) 138/98 Pulse Ox 100 Medical Decision Making Differential Diagnosis 28-year-old male who is status post bat bite to left forearm. Shared decision- making to begin rabies vaccines and administer rabies immunoglobulin today. No secondary signs of infection at this time. Grossly neurologically intact. Discharged safely from the emergency department with instructions to return on day three, seven and 10. Departure Disposition: 01 HOME / SELF CARE / HOMELESS Impression: Primary Impression: Bat bite wound Condition: Stable Discharge Instructions: Rabies Immune Globulin, human RIG solution for injection, Rabies Vaccine suspension for injection, VIS, Rabies - CDC (11/08/2021) Additional Instructions: Please follow up in 3 days for repeated Rabies vaccine, then 7 days from today and then 14 days from today. Referrals: NO PRIMARY CARE PROVIDER (PCP) Education Educated: Patient Educated regarding: diagnosis, treatment Signature Scribe Signature: . Attestation: . ARUN CAVANAUGH PAC Nov 10, 2024 14:27
[2024-11-10] MEDS: rabies vaccine (PCEC)/PF 2.5 unit kit IMVAC ONE (15:28)
[2024-11-10] MEDS: rabies immune globulin/PF 150 unit/ml inj IMVAC STA (15:29)
== END 2024-11-10 16:10 | disposition home or self-care (01) ==
LOC: ER 12:46
DX: S51.832A Puncture wound without foreign body of left forearm, initial encounter (principal); Z90.49 Acquired absence of other specified parts of digestive tract; W55.81XA Bitten by other mammals, initial encounter; Y93.89 Activity, other specified; Y92.89 Other specified places as the place of occurrence of the external cause; Y99.8 Other external cause status
CPT/HCPCS: 90375; 90675; 96372; 99284; G0008; 90376; 90471

== ENCOUNTER 2024-11-13 07:11 | Emergency (ER) | payer MEDICARE, MEDICAID ==
[~2024-11-13] VITALS: Ht 182.9 cm; Wt 137.0 kg
[2024-11-13 07:13] VITALS: TEMP 98.2
--- NOTE | 2024-11-13 08:28 | Physician Documentation ---
History of Present Illness ~ General Chief Complaint: See Chief Complaint Stated Complaint: RABIES VACCINE Time Seen by MD: 08:27 OK to notify your PCP?: Yes Primary Medical Doctor: none Source: patient, RN/MD, RN notes reviewed, old records Mode of Arrival: POV Exam Limitations: no limitations History of Present Illness Initial Comments Patient comes in for his rabies shot. He was bitten by a bat to his left forearm. There was no signs of infection. His tetanus is up-to-date. Patient is doing well otherwise no fevers chills just here for his series of shots. Patient has no complaints Medication Reconciliation Allergies: Coded Allergies: No Known Allergies (Unverified , 11/13/24) Scheduled Docusate Sodium (Docusate Sodium), 2 CAP PO HS Docusate Sodium (Colace), 1 CAP PO Q12H Hydrocortisone Acetate (Hydrocortisone Acetate), 1 SUPP RC Q12H Scheduled PRN Acetaminophen (Tylenol), 650 MG PO Q6H PRN for pain Miscellaneous Medications Unable to Obtain Medications (Unable to Obtain Medications), (Reported) Past Medical History Past Medical History: *GI/HEPATOBILIARY*, Hemorrhoids Past Surgical History: appendectomy Patient History: FH: BRCA gene positive Alcohol Use: None Drug Use: none Lives with: Alone Lives In: Home Occupation: employed Review of Systems All Other Systems at this time: Reviewed and Negative Physical Exam Physical Exam Vital Signs: RN Vital Signs have been reviewed: Yes, Temperature: 98.2, Source: Temporal, Heart Rate: 98, Respiratory Rate: 16, BP: 133/94, Pulse Oximetry: 98, Weight: 137.000 Oxygen Flow Rate: 0 Physical Exam General: The patient is well developed, well nourished, nontoxic appearing and is in no acute distress. Skin: [place], warm and dry with no rashes. HEENT: Head was normocephalic and atraumatic. Eyes - pupils equal, round, reactive to light and accommodation. Extraocular movements were intact. Conjunctivae were nonicteric. The mouth and oropharynx were clear with moist mucous membranes. Neck: Supple and nontender. There was no jugular venous distention, Chest: Clear to auscultation bilaterally without wheezes, rales or rhonchi. Heart: Rate regular and rhythmic. S1, S2. No murmurs. Abdomen: Soft, nontender and nondistended. Positive bowel sounds. No guarding or rebound. Extremities: No cyanosis, clubbing or edema. The patient moves all extremities. Pulses were equal and symmetric. Left forearm medial aspect is a antonio to the forearm no signs of erythema. Neurologic: Motor sensory grossly intact Psychologic: The patient was oriented to person, place and time. The patient demonstrated appropriate judgement and insight. Progress Results/Orders Reviewed/noted all lab results: Yes Results/Orders Completed Orders - JERRY GUZMAN MD Rabies Vaccine (Pcec)/Pf (Rabavert Rabie (11/13/24 08:30) Vital Signs 11/13/24 07:13 Temp 98.2 Pulse 98 Resp 16 B/P (MAP) 133/94 Pulse Ox 98 O2 Flow Rate 0 Re-Evaluation Re-Evaluation : Re-Evaluation: Improved Progress Patient was seen and examined. Patient is given reassurance. The patient received a vaccine. Patient is doing well. Patient was then discharged home. Medical Decision Making Additional info obtained from: old records Departure Disposition: 01 HOME / SELF CARE / HOMELESS Impression: Primary Impression: Encounter for repeat administration of rabies vaccination Additional Impression: Bat bite wound Condition: Stable Discharge Instructions: Rabies Referrals: NO PRIMARY CARE PROVIDER (PCP) Education Educated: Patient Educated regarding: diagnosis, need for follow up, other Signature Scribe Signature: no scribe Attestation: The note accurately reflects work and decisions made by me.Jerry Guzman MD 11/13/24 08:28 JERRY GUZMAN MD Nov 13, 2024 08:28
[2024-11-13] MEDS: rabies vaccine (PCEC)/PF 2.5 unit kit IMVAC ONE (09:09)
[2024-11-13 09:36] VITALS: BP 115/75; PULSE 86; RESP 16; O2SAT 99
== END 2024-11-13 09:13 | disposition home or self-care (01) ==
LOC: ER 07:11
DX: S51.832D Puncture wound without foreign body of left forearm, subsequent encounter (principal); Z90.49 Acquired absence of other specified parts of digestive tract; Z79.899 Other long term (current) drug therapy; Z60.2 Problems related to living alone; W64.XXXD Exposure to other animate mechanical forces, subsequent encounter
CPT/HCPCS: 90675; 99281; G0008; 90471

== ENCOUNTER 2024-11-17 07:06 | Emergency (ER) | payer MEDICARE, MEDICAID ==
[~2024-11-17] VITALS: Ht 182.9 cm; Wt 135.8 kg
[2024-11-17 07:11] VITALS: BP 145/63; PULSE 83; RESP 18; TEMP 97.8; O2SAT 97
--- NOTE | 2024-11-17 07:43 | Physician Documentation ---
HPI ~ General Chief Complaint: Medication Request Stated Complaint: RABIES FOLLOW UP Time Seen by MD: 07:40 Primary Medical Doctor: none History of Present Illness HPI Comments Patient presenting for 3rd rabies vaccine. He is feeling well asymptomatic Medication Reconciliation Allergies: Coded Allergies: No Known Allergies (Unverified , 11/13/24) Scheduled Docusate Sodium (Docusate Sodium), 2 CAP PO HS Docusate Sodium (Colace), 1 CAP PO Q12H Hydrocortisone Acetate (Hydrocortisone Acetate), 1 SUPP RC Q12H Scheduled PRN Acetaminophen (Tylenol), 650 MG PO Q6H PRN for pain Miscellaneous Medications Unable to Obtain Medications (Unable to Obtain Medications), (Reported) Past Medical History Past Medical History: *GI/HEPATOBILIARY*, Hemorrhoids Past Surgical History: appendectomy Patient History: FH: BRCA gene positive Alcohol Use: None Drug Use: none Lives with: Alone Lives In: Home Occupation: employed Review of Systems All Other Systems at this time: Reviewed and Negative Constitutional: Denies: fever Physical Exam Physical Exam Vital Signs: Temperature: 97.8, Source: Temporal, Heart Rate: 83, Respiratory Rate: 18, BP: 145/63, Pulse Oximetry: 97, Weight: 135.850 Physical Exam Well-appearing no distress Progress Results/Orders Results/Orders Vital Signs 11/17/24 07:11 Temp 97.8 Pulse 83 Resp 18 B/P (MAP) 145/63 Pulse Ox 97 Medical Decision Making Differential Dx:Considerations: Include: Adverse circumstances, Medical services unavail., Medication refill Departure Disposition: HOME / SELF CARE / HOMELESS Impression: Primary Impression: Rabies, need for prophylactic vaccination against Additional Instructions: Return if you develop any fever or discomfort at the vaccine site not relieved by ibuprofen Referrals: NO PRIMARY CARE PROVIDER (PCP) Signature Scribe Signature: na Attestation: SAMANTHA Black MD Nov 17, 2024 07:43
[2024-11-17] MEDS: rabies vaccine (PCEC)/PF 2.5 unit kit IMVAC ONE (08:36)
== END 2024-11-17 08:54 | disposition home or self-care (01) ==
LOC: ER 07:12
DX: Z20.3 Contact with and (suspected) exposure to rabies (principal); Z23 Encounter for immunization; Z90.49 Acquired absence of other specified parts of digestive tract
CPT/HCPCS: 90675; 99281; G0008; 90471

== ENCOUNTER 2024-11-17 15:17 | Outpatient (CLI) | payer MEDICARE, MEDICAID ==
[2024-11-17 16:17] LABS: BASOPHILS % (AUTO) 0.3 % (0-1); EOSINOPHILS # (AUTO) 0.1 X10'3 (0-0.9); EOSINOPHILS % (AUTO) 0.5 % (0-6); HEMATOCRIT 41.5 % (42.0-52.0); HEMOGLOBIN 13.4 g/dl (14.0-17.9); LYMPHOCYTES # (AUTO) 3.4 X10'3 (1.1-4.8); LYMPHOCYTES % (AUTO) 22.7 % (21-51); MEAN CORPUSCULAR HEMOGLOBIN 25.3 PG (27.0-31.0); MEAN CORPUSCULAR HGB CONC 32.3 g/dL (33.0-36.5); MEAN CORPUSCULAR VOLUME 78.1 FL (78-98); MEAN PLATELET VOLUME 8.3 FL (7.4-10.4); MONOCYTES # (AUTO) 0.8 X10'3 (0-0.9); MONOCYTES % (AUTO) 5.7 % (2-12); NEUTROPHILS # (AUTO) 10.5 X10'3 (1.8-7.7); NEUTROPHILS % (AUTO) 70.8 % (42-75); PLATELET COUNT 331 X10'3 (140-440); RED BLOOD COUNT 5.31 X10'6 (4.70-6.10); RED CELL DISTRIBUTION WIDTH 15.5 % (11.5-14.5); WHITE BLOOD COUNT 14.8 X10'3 (4.5-11.0)
== END 2024-11-17 23:59 | disposition home or self-care (01) ==
LOC: RAD 15:17
PROVIDERS: ATTEND Hospitalist
DX: K92.1 Melena (principal)
CPT/HCPCS: 36415; 85025

== ENCOUNTER 2024-11-24 07:08 | Emergency (ER) | payer MEDICARE, MEDICAID ==
[~2024-11-24] VITALS: Ht 182.9 cm; Wt 137.2 kg
[2024-11-24 07:24] VITALS: BP 126/69; PULSE 74; RESP 18; O2SAT 98
--- NOTE | 2024-11-24 09:12 | Physician Documentation ---
History of Present Illness Patient presenting for4TH rabies vaccine. He is feeling well asymptomatic Chief Complaint: Bite-animal Stated Complaint: RABIES VACCINE Time Seen by MD: 08:56 Primary Medical Doctor: none HPI Patient presenting for 3rd rabies vaccine. He is feeling well asymptomatic Tetanus within 5 years?: No Medication Reconciliation Allergies: Coded Allergies: No Known Allergies (Unverified , 11/13/24) Scheduled Docusate Sodium (Docusate Sodium), 2 CAP PO HS Docusate Sodium (Colace), 1 CAP PO Q12H Hydrocortisone Acetate (Hydrocortisone Acetate), 1 SUPP RC Q12H Scheduled PRN Acetaminophen (Tylenol), 650 MG PO Q6H PRN for pain Miscellaneous Medications Unable to Obtain Medications (Unable to Obtain Medications), (Reported) Past Medical History Past Medical History: *GI/HEPATOBILIARY*, Hemorrhoids Past Surgical History: appendectomy Patient History: FH: BRCA gene positive Alcohol Use: None Drug Use: none Lives with: Alone Lives In: Home Occupation: employed Review of Systems All Other Systems at this time: Reviewed and Negative ROS As stated above in the HPI, otherwise all systems are reviewed and negative. Physical Exam Vital Signs: Temperature: 97.8, Source: Temporal, Heart Rate: 74, Respiratory Rate: 18, BP: 126/69, Pulse Oximetry: 98, Weight: 137.250 Oxygen Flow Rate: 0 Physical Exam General: Alert, no apparent distress. Respiratory: Lungs clear, no respiratory distress. Cardiovascular: Regular rate and rhythm, no murmurs. Gastrointestinal: Soft, nontender, nondistended. Bowels sounds present. Extremities: Normal range of motion, no deformity. Neurologic: Oriented x4. Psychiatric: Normal mood and affect. Skin: Normal color, warm and dry. No edema, no ecchymosis. Progress Results/Orders Results/Orders Completed Orders - NAVDEEP PORTILLO NP Rabies Vaccine (Pcec)/Pf (Rabavert Rabie (11/24/24 09:10) Vital Signs 11/24/24 11/24/24 07:24 10:01 Temp 97.8 97.8 Pulse 74 Resp 18 B/P (MAP) 126/69 Pulse Ox 98 O2 Flow Rate 0 Medical Decision Making Findings PATIENTS PATIENT RECEIVED FOR THE VACCINE WITHOUT ISSUE ADVISED TO FOLLOW UP FOR ANY WORSENING SYMPTOMS Differential Dx:Considerations: Include: Abrasion, Allergic reaction, Anaphylaxis, Cellulitis, Contusion, Fracture, Hematoma, Insect envenomation, Laceration, Neurovascular injury, Punture wound, Retained foreign body, Urticaria, Other Departure Disposition: 01 HOME / SELF CARE / HOMELESS Impression: Primary Impression: Bat bite wound Condition: Stable Discharge Instructions: Animal Bite, Adult Referrals: NO PRIMARY CARE PROVIDER (PCP) Signature Scribe Signature: f Attestation: Scribed for Navdeep Portillo [employer] Trimmer by Navdeep Mclain NP . 11/24/24 18:22 NAVDEEP PORTILLO NP Nov 24, 2024 09:11
[2024-11-24] MEDS: rabies vaccine (PCEC)/PF 2.5 unit kit IMVAC ONE (09:52)
[2024-11-24 10:01] VITALS: TEMP 97.8
== END 2024-11-24 10:04 | disposition home or self-care (01) ==
LOC: ER 07:09
DX: T14.8XXD Other injury of unspecified body region, subsequent encounter (principal); Z90.49 Acquired absence of other specified parts of digestive tract; W55.81XD Bitten by other mammals, subsequent encounter
CPT/HCPCS: 90675; 99281; G0008; 90471